=== PATIENT | female | born 1975 | race Caucasian/White ===

== ENCOUNTER → 2017-03-24 | Emergency (ER) | payer OTHER ==
[~2017-03-24] VITALS: Ht 175.3 cm; Wt 84.4 kg
[~2017-03-24] MED LIST: ALBUTEROL2.5 MG/3 M IH; CIPRO100 MG PO; GABAPENTIN800 MG PO; LEVAQUIN750 MG PO; MEDROL4 MG PO; MEDROLPACK PO; NEURO MAX85 GM; NEURONTIN300 MG; NEURONTIN800 MG; NON ADHEREN1 BANDAGE TP; PERCOCET 10/3251 TAB; PERCOCET 5-3251 EACH; PROTONIX40 MG PO; PROVENTIL3 ML/2.5 M IH; PYRIDIUM DS200 MG PO; SINGULAIR 10MG10 MG PO; TUSSI-PRES LIQ118 ML PO; TUSSIONEX PENNKI5 ML PO; TYLENOL325 MG PO; XOPENEX0.63 MG/3 IH; ZITHROMAX TRI-500 MG; ZITHROMAX500 MG PO
== END | disposition home or self-care (01) ==
LOC: ER 15:33
DX: L02.415 Cutaneous abscess of right lower limb (principal)

== ENCOUNTER 2017-03-26 16:56 | Emergency (ER) | payer OTHER ==
[~2017-03-26] VITALS: Ht 170.2 cm; Wt 77.1 kg
[~2017-03-26 16:56] MED LIST changes: -NEURO MAX85 GM; -NEURONTIN800 MG
[2017-03-26] MEDS ORDERED: NEURO MAX85 GM (17:01)
[2017-03-26] MEDS ORDERED: NEURONTIN800 MG (17:02)
== END 2017-03-26 19:45 | disposition home or self-care (01) ==
LOC: ER 16:56
DX: L03.317 Cellulitis of buttock (principal)

== ENCOUNTER → 2017-04-01 | Emergency (ER) | payer OTHER ==
[~2017-04-01] VITALS: Ht 175.3 cm; Wt 82.6 kg
[~2017-04-01] MED LIST changes: +NEURO MAX85 GM; +NEURONTIN800 MG
== END | disposition home or self-care (01) ==
LOC: ER 15:50
DX: Z48.02 Encounter for removal of sutures (principal)

== ENCOUNTER 2017-05-01 09:21 | Inpatient (IN) | payer OTHER ==
[~2017-05-01] VITALS: Ht 175.3 cm; Wt 79.8 kg
[2017-05-06] MEDS ORDERED: LORATADINE10 MG PO (12:39)
[2017-05-06] MEDS ORDERED: BACTRIM DS TAB1 EACH PO (12:42)
[2017-05-06] MEDS ORDERED: HIBICLENS118 ML TOP (12:43)
[2017-05-06] MEDS ORDERED: BACTROBAN NASAL1 GM NASAL (12:45)
[2017-05-06] MEDS ORDERED: VENTOLIN HFA18 GM IH (12:46)
== END 2017-05-06 14:10 | disposition home or self-care (01) | DRG 603 ==
LOC: ER 09:21 → SEC-K 19:09 → MEDJ 05-02 19:08
PROC: 4A033R1 Measurement of Arterial Saturation, Peripheral, Percutaneous Approach (ICD-10-PCS; 2017-05-01)
PROC: 3E0F7GC Introduction of Other Therapeutic Substance into Respiratory Tract, Via Natural or Artificial Opening (ICD-10-PCS; 2017-05-01)
PROC: 8E0ZXY6 Isolation (ICD-10-PCS; 2017-05-01)
PROC: 0J990ZX Drainage of Buttock Subcutaneous Tissue and Fascia, Open Approach, Diagnostic (ICD-10-PCS; principal; 2017-05-02)
DX: L02.31 Cutaneous abscess of buttock (principal); L02.415 Cutaneous abscess of right lower limb; L03.317 Cellulitis of buttock; J45.998 Other asthma; L29.8 Other pruritus; T39.1X5A Adverse effect of 4-Aminophenol derivatives, initial encounter; B95.62 Methicillin resistant Staphylococcus aureus infection as the cause of diseases classified elsewhere; J30.89 Other allergic rhinitis

== ENCOUNTER → 2017-06-26 | Emergency (ER) | payer OTHER ==
[~2017-06-26] VITALS: Ht 175.3 cm; Wt 83.5 kg
[~2017-06-26] MED LIST changes: +ALBUTEROL0.63 MG/3 IH; +BACTRIM DS TAB1 EACH PO; +BACTROBAN NASAL1 GM NASAL; +FLONASE16 GM NASAL; +GILTUSS TR TAB1 EACH PO; +HIBICLENS118 ML TOP; +IPRATROPIU0.2 MG/1 M IH; +LORATADINE10 MG PO; +PREDNISONE10 MG PO; +PROMETHAZINE W118 ML PO; +SINGULAIR10 MG PO; +THEOPHYLLINE400 MG PO; +VENTOLIN HFA18 GM IH
== END | disposition home or self-care (01) ==
LOC: ER 12:57
DX: J45.32 Mild persistent asthma with status asthmaticus (principal); J44.1 Chronic obstructive pulmonary disease with (acute) exacerbation

== ENCOUNTER 2017-12-11 16:57 | Emergency (ER) | payer OTHER ==
[~2017-12-11] VITALS: Ht 175.3 cm; Wt 83.9 kg
== END 2017-12-11 18:48 | disposition home or self-care (01) ==
LOC: ER 16:57
DX: S80.812A Abrasion, left lower leg, initial encounter (principal); W45.8XXA Other foreign body or object entering through skin, initial encounter; Y93.89 Activity, other specified; Y92.89 Other specified places as the place of occurrence of the external cause; Y99.8 Other external cause status

== ENCOUNTER 2018-01-12 11:19 | Emergency (ER) | payer OTHER ==
[~2018-01-12] VITALS: Ht 175.3 cm; Wt 83.9 kg
== END 2018-01-12 15:47 | disposition home or self-care (01) ==
LOC: ER 11:19
DX: S90.31XA Contusion of right foot, initial encounter (principal); W18.39XA Other fall on same level, initial encounter; Y93.89 Activity, other specified; Y92.098 Other place in other non-institutional residence as the place of occurrence of the external cause; Y99.8 Other external cause status

== ENCOUNTER 2018-05-18 23:53 | Emergency (ER) | payer OTHER ==
[~2018-05-18] VITALS: Ht 175.3 cm; Wt 81.2 kg
[2018-05-19] MEDS ORDERED: PANADOL EXTRA500 MG (00:07)
[2018-05-19] MEDS ORDERED: [UNRECOGNIZED DRUG - OTHER] (00:08)
[2018-05-19] MEDS ORDERED: TUSSI PRES-B L120 M1 PO (11:34)
[2018-05-19] MEDS ORDERED: ZITHROMAX TRI-500 MG PO (11:34)
[2018-05-19] MEDS ORDERED: MEDROLPACK PO (11:34)
== END 2018-05-19 12:06 | disposition home or self-care (01) ==
LOC: ER 23:53
DX: J98.01 Acute bronchospasm (principal); J06.9 Acute upper respiratory infection, unspecified

== ENCOUNTER 2018-09-24 16:09 | Inpatient (IN) | payer OTHER ==
[~2018-09-24] VITALS: Ht 175.3 cm; Wt 83.5 kg
[~2018-09-24 16:09] MED LIST changes: +PANADOL EXTRA500 MG; +TUSSI PRES-B L120 M1 PO; +ZITHROMAX TRI-500 MG PO; +[UNRECOGNIZED DRUG - OTHER]
[2018-10-01] MEDS ORDERED: ULTRACET PO (09:54)
== END 2018-10-01 10:24 | disposition home or self-care (01) | DRG 202 ==
LOC: ER 16:09 → MEDJ 09-25 09:41
PROVIDERS: ADMIT Internal Medicine
PROC: 3E0F7GC Introduction of Other Therapeutic Substance into Respiratory Tract, Via Natural or Artificial Opening (ICD-10-PCS; principal; 2018-09-25)
DX: J45.902 Unspecified asthma with status asthmaticus (principal); J44.1 Chronic obstructive pulmonary disease with (acute) exacerbation; L02.212 Cutaneous abscess of back [any part, except buttock and flank]; L02.415 Cutaneous abscess of right lower limb; J45.901 Unspecified asthma with (acute) exacerbation; J06.9 Acute upper respiratory infection, unspecified; Z22.322 Carrier or suspected carrier of Methicillin resistant Staphylococcus aureus; J98.01 Acute bronchospasm

== ENCOUNTER 2018-10-09 09:32 | Emergency (ER) | payer OTHER ==
[~2018-10-09] VITALS: Ht 175.3 cm; Wt 81.6 kg
[~2018-10-09 09:32] MED LIST changes: +ULTRACET PO
== END 2018-10-09 14:55 | disposition home or self-care (01) ==
LOC: ER 09:32
DX: J45.41 Moderate persistent asthma with (acute) exacerbation (principal)

== ENCOUNTER 2019-05-05 11:09 | Emergency (ER) | payer OTHER ==
[~2019-05-05] VITALS: Ht 170.2 cm; Wt 74.8 kg
== END 2019-05-05 20:09 | disposition home or self-care (01) ==
LOC: ER 11:09 → CPU-OBS 12:28 → ER 20:09
DX: R07.89 Other chest pain (principal); R00.2 Palpitations
CPT/HCPCS: G0378; G0379; 93005

== ENCOUNTER 2021-01-10 09:00 | Inpatient (IN) | payer OTHER ==
[~2021-01-10] VITALS: Ht 175.3 cm; Wt 79.8 kg
[2021-01-10] MEDS ORDERED: PERCOCET 2.5-31 EACH (09:17)
[2021-01-10] MEDS ORDERED: NEURONTIN800 MG (09:17)
[2021-01-16] MEDS ORDERED: PEPCID AC20 MG PO (10:50)
[2021-01-16] MEDS ORDERED: INTESTINEX680 M1 PO (10:50)
== END 2021-01-16 13:11 | disposition home or self-care (01) | DRG 202 ==
LOC: ER 09:00 → MEDI 18:20 → SEC-K 18:20 → MEDI 21:07
PROVIDERS: ADMIT Internal Medicine; ATTEND Internal Medicine
PROC: 3E0F7GC Introduction of Other Therapeutic Substance into Respiratory Tract, Via Natural or Artificial Opening (ICD-10-PCS; principal; 2021-01-10)
PROC: 4A033R1 Measurement of Arterial Saturation, Peripheral, Percutaneous Approach (ICD-10-PCS; 2021-01-10)
PROC: 02HV33Z Insertion of Infusion Device into Superior Vena Cava, Percutaneous Approach (ICD-10-PCS; 2021-01-11)
PROC: 3E0F7SF Introduction of Other Gas into Respiratory Tract, Via Natural or Artificial Opening (ICD-10-PCS; 2021-01-11)
DX: J45.902 Unspecified asthma with status asthmaticus (principal); J44.1 Chronic obstructive pulmonary disease with (acute) exacerbation; E09.9 Drug or chemical induced diabetes mellitus without complications; Z20.822 Contact with and (suspected) exposure to COVID-19

== ENCOUNTER 2021-05-13 23:36 | Emergency (ER) | payer OTHER ==
[~2021-05-13] VITALS: Ht 175.3 cm; Wt 75.7 kg
[~2021-05-13 23:36] MED LIST changes: +INTESTINEX680 M1 PO; +PEPCID AC20 MG PO; +PERCOCET 2.5-31 EACH
[2021-05-14] MEDS ORDERED: MEDROLPACK PO (12:26)
[2021-05-14] MEDS ORDERED: ZYRTEC10 MG PO (12:26)
[2021-05-14] MEDS ORDERED: IPRAT-ALBUT 0.5-3 ML IH (12:26)
[2021-05-14] MEDS ORDERED: XOPENEX0.63 MG/3 IH (12:26)
[2021-05-14] MEDS ORDERED: SINGULAIR 10MG10 MG PO (12:26)
[2021-05-14] MEDS ORDERED: TUSSI PRES-B L480 ML PO (12:26)
[2021-05-14] MEDS ORDERED: INTESTINEX680 M1 PO (12:26)
[2021-05-14] MEDS ORDERED: ZITHROMAX500 MG PO (12:26)
== END 2021-05-14 13:44 | disposition home or self-care (01) ==
LOC: ER 23:36
DX: J44.1 Chronic obstructive pulmonary disease with (acute) exacerbation (principal); J45.998 Other asthma; Z88.6 Allergy status to analgesic agent; Z88.0 Allergy status to penicillin; Z20.822 Contact with and (suspected) exposure to COVID-19

== ENCOUNTER 2021-10-03 23:02 | Inpatient (IN) | payer OTHER ==
[~2021-10-03] VITALS: Ht 175.3 cm; Wt 77.1 kg
[~2021-10-03 23:02] MED LIST changes: +IPRAT-ALBUT 0.5-3 ML IH; +TUSSI PRES-B L480 ML PO; +ZYRTEC10 MG PO
--- NOTE | 2021-10-03 23:50 | NUR ---
SE RECIBE PTE ALERTA Y ORIENTADA POR JONATAN. PTE REFIERE PRESENTAR ASMA DESDE HACE FATIMAH SEMANA Y MAREOS DE EL VALERIY DE HOY.
--- NOTE | 2021-10-04 00:21 | NUR ---
SE REALIZA ADMINISTRACION DE MEDICAMENTOS POR ORDEN MEDICA, MUESTRAS DE NED Y SE TIENE PENDIENTE DE REALIZAR PLACA. PACIENTE AL MOMENTO SE ORIENTA OSBRE LAS ORDENES MEDICAS. PACIENTE NO REFIERE QUEJA ALGUNA Y SE MANTIENE EN ESPERA DE RESULTADOS DE LABORATORIO.
--- NOTE | 2021-10-04 00:22 | NUR ---
PACIENTE EN ESPERA DE TERAPIAS YA NOTIFICADAS.
--- NOTE | 2021-10-04 00:48 | NUR ---
LE OFRECEN TERAPIAS RESPIRATORIAS Y REALIZAN ABG.
--- NOTE | 2021-10-04 08:13 | NUR ---
SE RECIBE PACIENTE DEL TURNO ANTERIOR ALERTA Y ORIENTADA X3 UBICADA EN ANGELA CON BARANDAS ELEVADAS POR PRECAUCION A CAIDAS. SE LE ORIENTA A PACIENTE SOBRE CONTINUIDAD DE TX DE ENFERMERIA Y REFIERE ENTENDER. SE MANTIENE BAJO OBSERVACION POR CAMBIOS SIGNIFICATIVOS EN JAEGER TRATAMIENTO MEDICO.
== END 2021-10-05 20:41 | disposition home or self-care (01) | DRG 203 ==
LOC: ER 23:02 → MEDI 10-04 12:51 → MEDJ 10-04 12:51 → MEDI 10-05 20:41
PROVIDERS: ADMIT Internal Medicine; ATTEND Internal Medicine
PROC: 4A033R1 Measurement of Arterial Saturation, Peripheral, Percutaneous Approach (ICD-10-PCS; principal; 2021-10-04)
PROC: 3E0F7GC Introduction of Other Therapeutic Substance into Respiratory Tract, Via Natural or Artificial Opening (ICD-10-PCS; 2021-10-04)
DX: J45.42 Moderate persistent asthma with status asthmaticus (principal); Z20.822 Contact with and (suspected) exposure to COVID-19

== ENCOUNTER → 2022-01-29 | Emergency (ER) | payer OTHER ==
[~2022-01-29] VITALS: Ht 175.3 cm; Wt 81.6 kg
[~2022-01-29] MED LIST changes: +TUSNEL LIQUID178 ML PO
== END | disposition left against medical advice (07) ==
LOC: ER 14:20
DX: R53.81 Other malaise (principal); Z88.6 Allergy status to analgesic agent; Z88.0 Allergy status to penicillin

== ENCOUNTER 2022-01-30 17:11 | Emergency (ER) | payer OTHER ==
[~2022-01-30] VITALS: Ht 172.7 cm; Wt 77.1 kg
[~2022-01-30 17:11] MED LIST changes: -TUSNEL LIQUID178 ML PO
[2022-01-30] MEDS ORDERED: IPRAT-ALBUT 0.5-3 ML IH (21:35)
[2022-01-30] MEDS ORDERED: MEDROLPACK PO (21:35)
[2022-01-30] MEDS ORDERED: TUSNEL LIQUID178 ML PO (21:35)
== END 2022-01-30 21:40 | disposition home or self-care (01) ==
LOC: ER 17:11
DX: J45.909 Unspecified asthma, uncomplicated (principal); Z20.828 Contact with and (suspected) exposure to other viral communicable diseases

== ENCOUNTER 2022-07-03 23:26 | Emergency (ER) | payer OTHER ==
[~2022-07-03] VITALS: Ht 175.3 cm; Wt 81.6 kg
[~2022-07-03 23:26] MED LIST changes: +TUSNEL LIQUID178 ML PO
[2022-07-04] MEDS ORDERED: CIPRO500 MG PO (08:04)
[2022-07-04] MEDS ORDERED: LEVSIN/SL0.125 MG SL (08:04)
[2022-07-04] MEDS ORDERED: INTESTINEX680 M1 PO (08:04)
== END 2022-07-04 08:21 ==
LOC: ER 23:26
DX: R10.32 Left lower quadrant pain (principal); K57.30 Diverticulosis of large intestine without perforation or abscess without bleeding; Z88.6 Allergy status to analgesic agent; Z88.0 Allergy status to penicillin; Z87.09 Personal history of other diseases of the respiratory system

== ENCOUNTER → 2022-07-05 | Emergency (ER) | payer OTHER ==
[~2022-07-05] VITALS: Ht 175.3 cm; Wt 81.6 kg
[~2022-07-05] MED LIST changes: +CIPRO500 MG PO; +LEVSIN/SL0.125 MG SL
== END | disposition home or self-care (01) ==
LOC: ER 14:43
DX: M54.9 Dorsalgia, unspecified (principal); Z88.0 Allergy status to penicillin; Z88.6 Allergy status to analgesic agent

== ENCOUNTER 2024-01-23 12:51 | Emergency (ER) | payer OTHER ==
[~2024-01-23] VITALS: Ht 175.3 cm; Wt 80.7 kg
[2024-01-23] MEDS ORDERED: TRAMADOL HCL50 MG PO (13:24)
[2024-01-23] MEDS ORDERED: TRAMADOL HCL 50 MG TABLET PO STA (14:10)
[2024-01-23 15:56] LABS: HEMATOCRIT 36.8 % (36.0-45.00); HEMOGLOBIN 12.5 g/dL (12.0-15.00); MEAN CELL VOLUME 82.7 fL (80.00-100.00); MEAN CORPUSCULAR HEMOGLOBIN 28.1 pg (27.00-32.0); PLATELET COUNT 434 K/uL (150-450); RED BLOOD COUNT 4.45 M/uL (4.00-6.00); RED CELL DISTRIBUTION WIDTH 13.2 % (11.5-14.5)
[2024-01-23 16:18] LABS: CALCIUM 8.8 mg/dL (8.5-10.1); CREATININE SERUM 0.73 mg/dL (0.55-1.02); GFR 85.45; POTASSIUM 3.66 mEq/L (3.5-5.1)
[2024-01-23 16:38] LABS: URINE APPEARANCE Cloudy; URINE BILIRRUBIN Negative (NEGATIVE); URINE BLOOD Trace; URINE COLOR Yellow; URINE GLUCOSE Negative (NEGATIVE); URINE KETONE Trace (NEGATIVE); URINE LEUKOCYTE Moderate; URINE NITRATE Negative; URINE PROTEIN Negative (NEGATIVE); URINE UROBILINOGEN 0.2 E.U./dl
[2024-01-23 16:39] LABS: URINE BACTERIA 2671.1 uL (0.0-1933); URINE EPITHELIAL CELLS 74.1 uL (0.0-38.8); URINE RBC 11.4 uL (0.0-20.8); URINE WBC 34.6 uL (0.0-23.2)
== END 2024-01-23 18:39 | disposition home or self-care (01) ==
LOC: ER 12:53
PROVIDERS: General Practice
DX: R60.0 Localized edema (principal); I87.2 Venous insufficiency (chronic) (peripheral); Z88.6 Allergy status to analgesic agent; Z88.0 Allergy status to penicillin